=== PATIENT | male | born 1970 | race Hispanic/Latino ===

== ENCOUNTER → 2018-04-05 06:08 | Outpatient (CLI) | payer OTHER, SELFPAY ==
--- NOTE | 2018-04-05 | DI.MRI.S_ITS ---
PROCEDURE: MR LUMBAR SPINE WO CON INDICATIONS: Lumbago with sciatica, left side TECHNIQUE: Noncontrast sagittal T1 spin echo and T2 fast echo, sagittal STIR, axial T1 and T2 fast spin echo through the lumbar spine. In cases with scoliosis, additional coronal T2 fast spin echo may be performed. COMPARISON: None. FINDINGS: Image quality: Excellent. Alignment and Curvature: There is normal bony alignment. Bone Marrow: Mild reactive endplate change is noted adjacent to the L1-L2 and L2-L3 discs. No acute vertebral body compression fractures. Spinal Cord: Conus medullaris terminates at the T12-L1 disc level. Visualized cord demonstrates normal signal and size. Paraspinous Soft Tissues: No paravertebral masses. L1-L2: Loss of disc signal. Mild, diffuse disc bulge. No central stenosis. No neural foraminal narrowing. No neural impingement. L2-L3: Loss of disc signal. No central stenosis. No neural foraminal narrowing. No neural impingement. L3-L4: Loss of disc signal. No central stenosis. No neural foraminal narrowing. No neural impingement. L4-L5: Loss of disc signal. Mild bilateral facet hypertrophy. No central stenosis. No neural foraminal narrowing. No neural impingement. L5-S1: Loss of disc signal and height. Mild, diffuse disc bulge. Mild bilateral facet hypertrophy. Moderate-sized left central disc extrusion. Extruded disc material impinges upon the traversing left S1 nerve root. Mild narrowing of the central canal. No neural foraminal narrowing. IMPRESSION: 1. Multilevel degenerative disc disease. 2. Multilevel facet arthropathy. 3. Moderate-sized left central L5-S1 disc extrusion which impinges upon the traversing left S1 nerve root. Please correlate with clinical data. 4. Mild L5-S1 central canal narrowing. 5. No neural foraminal narrowing. Dictated by: Faviola Corona MD, PhD on 04/05/2018 at 9:44 Approved by: Faviola Corona MD, PhD on 04/05/2018 at 9:47
== END ==
DX: M51.16 Intervertebral disc disorders with radiculopathy, lumbar region (principal); M51.17 Intervertebral disc disorders with radiculopathy, lumbosacral region; M47.26 Other spondylosis with radiculopathy, lumbar region; M47.27 Other spondylosis with radiculopathy, lumbosacral region; M48.061 Spinal stenosis, lumbar region without neurogenic claudication; M48.07 Spinal stenosis, lumbosacral region
CPT/HCPCS: 72148

== ENCOUNTER 2019-11-04 20:58 | Emergency (ER) | payer OTHER, SELFPAY ==
[2019-11-04 21:02] VITALS: BP 129/64; PULSE 79; RESP 18; TEMP 36.8; O2SAT 98
--- NOTE | 2019-11-04 22:11 | DI.RAD.S_ITS ---
PROCEDURE: XR CHEST 1V INDICATIONS: flu-like symptoms TECHNIQUE: One view of the chest was acquired. COMPARISON: None. FINDINGS: Surgical changes and devices: None. Lungs and pleura: Lungs are clear. No pleural effusions or pneumothorax. Mediastinum: Mediastinal contours appear normal. Heart size is normal. Bones and chest wall: No suspicious bony lesions. Overlying soft tissues appear unremarkable. IMPRESSION: No acute disease Dictated by: Mike Osborne M.D. on 11/05/2019 at 8:44 Approved by: Mike Osborne M.D. on 11/05/2019 at 8:45
[2019-11-04 22:55] LABS: Alanine Aminotransferase 34 IU/L (<50); Albumin 4.1 g/dL (3.5-5.0); Albumin Globulin Ratio 1.1 (1.0-2.8); Alkaline Phosphatase 66 U/L (38-126); Aspartate Aminotransferase 39 IU/L (17-59); BUN Creatinine Ratio 12.6 (6-22); Bilirubin Total 0.4 mg/dL (0.2-1.3); Blood Urea Nitrogen 11 mg/dL (9-20); Calcium 8.4 mg/dL (8.4-10.2); Carbon Dioxide 28 mmol/L (22-32); Chloride 97 mmol/L (98-107); Creatine Kinase 92 U/L (55-170); Estimated Glomerular Filt Rate > 60.0 mL/min (>60); Globulin 3.6 g/dL (1.7-4.1); Glucose 104 mg/dL (70-100); HEMOLYSIS < 15 (0-50); Lactate (Lactic Acid) 0.8 mmol/L (0.7-2.1); Potassium 4.5 mmol/L (3.4-5.1); Sodium 134 mmol/L (137-145); Total Protein 7.7 g/dL (6.3-8.2)
[2019-11-04 22:57] LABS: Add Manual Diff / Slide Review NO; Basophils Absolute Auto 0 /uL (0-100); Basophils Percent Auto 0.4 % (0-2); Eosinophils Absolute Auto 0 /uL (0-450); Hematocrit 48.5 % (41-53); Hemoglobin 16.6 g/dL (13.5-17.5); Lymphocytes Absolute Auto 1500 /uL (1100-4500); Mean Corpuscular HGB Conc 34.3 % (30-36); Mean Corpuscular Hemoglobin 30.5 PG (26-34); Mean Corpuscular Volume 89.1 fL (80-100); Monocytes Absolute Auto 900 /uL (0-900); Monocytes Percent Auto 16.7 % (3-14); Neutrophils Absolute Auto 3100 /uL (1500-7000); Neutrophils Percent Auto 55.9 % (50-75); Platelet Count 160 X10^3/uL (150-400); Red Blood Cell Count 5.44 X10^6/uL (4.5-5.9); Red Cell Distribution Width 13.8 % (11.6-14.8); White Blood Cell Count 5.6 X10^3/uL (4.5-11.0)
[2019-11-04 23:06] LABS: Troponin I < 0.012 ng/mL (0.01-0.034)
--- NOTE | 2019-11-04 23:24 | ED.FEVER ---
HPI - Fever General Chief Complaint: Fever Stated Complaint: states high temperature,cough,tired Time Seen by Provider: 11/04/19 23:24 Source: patient Mode of arrival: Ambulatory Related Data Home Medications Medication Instructions Recorded Confirmed ibuprofen 200 mg PO TID PRN #0 07/13/16 albuterol sulfate [Ventolin HFA] 2 puff INH #0 09/06/16 fluticasone propionate [Flovent #0 09/06/16 HFA] Allergies Allergy/AdvReac Type Severity Reaction Status Date / Time No Known Allergies Allergy Uncoded 08/30/17 11:57 Patient History Social History Smoking Status: Never smoker Smoking Status: Never smoker alcohol intake frequency: holidays/special occasions only Exam Initial Vital Signs Initial Vital Signs: Vital Signs Temperature 98.3 F 11/04/19 21:02 Pulse Rate 79 11/04/19 21:02 Respiratory Rate 18 11/04/19 21:02 Blood Pressure 129/64 11/04/19 21:02 Pulse Oximetry 98 11/04/19 21:02 Course Orders Ordered: ED Orders 11/04/19 22:11 XR chest 1V Stat High flow/High humidity nasal NOW 11/04/19 22:27 Complete Blood Count AUTO DIFF Stat Comprehensive Metabolic Panel Stat Lactate (Lactic Acid) Stat Troponin & CK Cardiac Panel Stat Vital Signs Vital signs: Vital Signs - 8 hr 11/04/19 21:02 Temperature 98.3 F Pulse Rate 79 Respiratory Rate 18 Blood Pressure 129/64 Pulse Oximetry 98 MDM - Fever Lab Data Result diagrams: 11/04/19 22:27 11/04/19 22:27 Labs: Lab Results 11/04/19 11/04/19 11/04/19 Range/Units 22:20 22:27 22:27 WBC 5.6 (4.5-11.0) X10^3/uL RBC 5.44 (4.5-5.9) X10^6/uL Hgb 16.6 (13.5-17.5) g/dL Hct 48.5 (41-53) % MCV 89.1 (80-100) fL MCH 30.5 (26-34) PG MCHC 34.3 (30-36) % RDW 13.8 (11.6-14.8) % Plt Count 160 (150-400) X10^3/uL Neut % (Auto) 55.9 (50-75) % Lymph % (Auto) 27.0 (25-40) % [place] % (Auto) 16.7 H (3-14) % Eos % (Auto) 0.0 L (2-4) % Baso % (Auto) 0.4 (0-2) % Neut # (Auto) 3100 (3584-1473) /uL Lymph # (Auto) 1500 (9214-3314) /uL [place] # (Auto) 900 (0-900) /uL Eos # (Auto) 0 (0-450) /uL Baso # (Auto) 0 (0-100) /uL Sodium 134 L (137-145) mmol/L Potassium 4.5 (3.4-5.1) mmol/L Chloride 97 L (98-107) mmol/L Carbon Dioxide 28 (22-32) mmol/L BUN 11 (9-20) mg/dL Creatinine 0.87 (0.66-1.25) mg/dL Estimated GFR > 60.0 (>60) mL/min BUN/Creatinine Ratio 12.6 (6-22) Glucose 104 H (70-100) mg/dL Lactate (0.7-2.1) mmol/L Calcium 8.4 (8.4-10.2) mg/dL Total Bilirubin 0.4 (0.2-1.3) mg/dL AST 39 (17-59) IU/L ALT 34 (<50) IU/L Alkaline Phosphatase 66 (38-126) U/L Total Creatine Kinase 92 (55-170) U/L CK-MB (CK-2) TNP CK-MB (CK-2) Rel Index TNP Troponin I < 0.012 (0.01-0.034) ng/mL Total Protein 7.7 (6.3-8.2) g/dL Albumin 4.1 (3.5-5.0) g/dL Globulin 3.6 (1.7-4.1) g/dL Albumin/Globulin Ratio 1.1 (1.0-2.8) COVID-19 PCR Positive H (Negative) 11/04/19 Range/Units 22:27 WBC (4.5-11.0) X10^3/uL RBC (4.5-5.9) X10^6/uL Hgb (13.5-17.5) g/dL Hct (41-53) % MCV (80-100) fL MCH (26-34) PG MCHC (30-36) % RDW (11.6-14.8) % Plt Count (150-400) X10^3/uL Neut % (Auto) (50-75) % Lymph % (Auto) (25-40) % [place] % (Auto) (3-14) % Eos % (Auto) (2-4) % Baso % (Auto) (0-2) % Neut # (Auto) (5199-6516) /uL Lymph # (Auto) (2228-2500) /uL [place] # (Auto) (0-900) /uL Eos # (Auto) (0-450) /uL Baso # (Auto) (0-100) /uL Sodium (137-145) mmol/L Potassium (3.4-5.1) mmol/L Chloride (98-107) mmol/L Carbon Dioxide (22-32) mmol/L BUN (9-20) mg/dL Creatinine (0.66-1.25) mg/dL Estimated GFR (>60) mL/min BUN/Creatinine Ratio (6-22) Glucose (70-100) mg/dL Lactate 0.8 (0.7-2.1) mmol/L Calcium (8.4-10.2) mg/dL Total Bilirubin (0.2-1.3) mg/dL AST (17-59) IU/L ALT (<50) IU/L Alkaline Phosphatase (38-126) U/L Total Creatine Kinase (55-170) U/L CK-MB (CK-2) CK-MB (CK-2) Rel Index Troponin I (0.01-0.034) ng/mL Total Protein (6.3-8.2) g/dL Albumin (3.5-5.0) g/dL Globulin (1.7-4.1) g/dL Albumin/Globulin Ratio (1.0-2.8) COVID-19 PCR (Negative) Discharge Plan Departure Prescriptions: No Action ibuprofen 200 MG tablet 200 mg PO TID PRNQty: 0 RF: 0 fluticasone propionate [Flovent HFA] 12 GM HFA aerosol inhaler Qty: 0 RF: 0 albuterol sulfate [Ventolin HFA] 90 MCG/PUFF HFA aerosol inhaler 2 puff INH Qty: 0 RF: 0
--- NOTE | 2019-11-04 23:30 | ED.FEVER ---
HPI - Fever General Chief Complaint: Fever Stated Complaint: states high temperature,cough,tired Time Seen by Provider: 11/04/19 23:24 Source: patient Mode of arrival: Ambulatory Limitations: no limitations History of Present Illness HPI Narrative: The patient has been ill for 6 days. He is experience headache, sore throat and cough. He is not having much cough now. He does have mild GI upset, without nausea vomiting. He had fever to 101 earlier in the week, none now. He is eating and drinking well. He and his drove to [facility] Last week. I saw his in the ER last night, she is COVID-19 positive. They made the dry without stops. The visit with relatives who not ill. He May 2 trips to the store. He and his were unaware of any obvious contacts. He is nonsmoker. He denies chronic medical problems. He is having no difficulty breathing at this time. He works locally, he has unaware of any COVID-19 exposure at work. Related Data Home Medications Medication Instructions Recorded Confirmed ibuprofen 200 mg PO TID PRN #0 07/13/16 albuterol sulfate [Ventolin HFA] 2 puff INH #0 09/06/16 fluticasone propionate [Flovent #0 09/06/16 HFA] Allergies Allergy/AdvReac Type Severity Reaction Status Date / Time No Known Allergies Allergy Uncoded 08/30/17 11:57 Review of Systems Constitutional Constitutional: Reports system reviewed and no additional complaints, except as documented and Reports headache(s) Eyes Eyes: Denies blurry vision and Denies change in vision ENT Ears, Nose, Mouth, and Throat: Denies dizziness, Reports headache(s), Denies mouth pain, Denies nasal discharge and Denies neck pain Comments: He complains of sore throat that has improved. Cardiovascular Cardiovascular: Denies chest pain, Denies irregular heart rhythm, Denies lightheadedness and Denies dyspnea Respiratory Respiratory: Reports cough and Denies dyspnea Gastrointestinal Gastrointestinal: Reports abdominal pain, Denies constipation, Denies diarrhea, Denies nausea and Denies vomiting Genitourinary Comments: No complaints. Musculoskeletal Musculoskeletal: Denies back pain, Denies neck pain and Denies numbness Integumentary/Breasts Skin/Breast: Denies erythema, Denies rash and Denies wounds Neurologic Neurologic: Denies behavioral changes, Denies confusion, Denies dizziness, Reports headache(s) and Denies numbness Psychiatric Psychiatric: Denies behavioral changes and Denies confusion Patient History Social History Smoking Status: Never smoker Smoking Status: Never smoker alcohol intake frequency: holidays/special occasions only Exam Initial Vital Signs Initial Vital Signs: Vital Signs Temperature 98.3 F 11/04/19 21:02 Pulse Rate 79 11/04/19 21:02 Respiratory Rate 18 11/04/19 21:02 Blood Pressure 129/64 11/04/19 21:02 Pulse Oximetry 98 11/04/19 21:02 Const General: cooperative and well developed Nutritional Appearance: well nourished HENMT Nose: external nose normal Face and sinus: normal facial exam Mouth: oral mucosae normal Throat: posterior oropharynx normal Eyes Conjunctivae: conjunctivae normal Pupils: PERRL EOM: EOM intact bilaterally Neck Neck: supple and No tender Chest Chest: normal inspection of the chest Resp Effort & Inspection: normal respiratory effort, able to speak in complete sentences, no respiratory distress and no use of accessory muscles Auscultation: clear to auscultation bilaterally, no rales, no rhonchi and no wheezes Cardio Rate: regular rate Rhythm: regular rhythm Heart Sounds: S1 normal, S2 normal, no click, no gallops, no murmurs and no rubs Pulses: normal peripheral pulses GI Inspection: non-distended Palpation: soft, no hepatosplenomegaly, No guarding, No pulsatile mass and No tender Auscultation: normal bowel sounds Back/Spine/Pelvis Back: No CVA tenderness Cervical Spine: cervical ROM normal Thoracic/Lumbar Spine: thoracic and lumbar spine normal to inspection Skin General: no rashes or lesions noted, No jaundice and No petechiae Neuro General: patient alert, patient oriented x3, gait normal and no focal motor deficits Speech: speech normal Extrem General: full ROM, no clubbing, cyanosis or edema, no pedal edema and no calf tenderness Course Course Course Narrative: The patient's COVID-19. Currently his O2 sats are 98% on room air, his chest x-ray has minimal findings. He is breathing well. He may be recovering at this point. It sounds as if his symptoms were worse in recent days. He is discharged to home with instructions to self quarantine, return here if he develops increased issues with dyspnea. Orders Ordered: ED Orders 11/04/19 22:11 XR chest 1V Stat High flow/High humidity nasal NOW 11/04/19 22:27 Complete Blood Count AUTO DIFF Stat Comprehensive Metabolic Panel Stat Lactate (Lactic Acid) Stat Troponin & CK Cardiac Panel Stat Vital Signs Vital signs: Vital Signs - 8 hr 11/04/19 21:02 Temperature 98.3 F Pulse Rate 79 Respiratory Rate 18 Blood Pressure 129/64 Pulse Oximetry 98 MDM - Fever Lab Data Result diagrams: 11/04/19 22:27 11/04/19 22:27 Labs: Lab Results 11/04/19 11/04/19 11/04/19 Range/Units 22:20 22:27 22:27 WBC 5.6 (4.5-11.0) X10^3/uL RBC 5.44 (4.5-5.9) X10^6/uL Hgb 16.6 (13.5-17.5) g/dL Hct 48.5 (41-53) % MCV 89.1 (80-100) fL MCH 30.5 (26-34) PG MCHC 34.3 (30-36) % RDW 13.8 (11.6-14.8) % Plt Count 160 (150-400) X10^3/uL Neut % (Auto) 55.9 (50-75) % Lymph % (Auto) 27.0 (25-40) % [place] % (Auto) 16.7 H (3-14) % Eos % (Auto) 0.0 L (2-4) % Baso % (Auto) 0.4 (0-2) % Neut # (Auto) 3100 (4875-8830) /uL Lymph # (Auto) 1500 (4089-3901) /uL [place] # (Auto) 900 (0-900) /uL Eos # (Auto) 0 (0-450) /uL Baso # (Auto) 0 (0-100) /uL Sodium 134 L (137-145) mmol/L Potassium 4.5 (3.4-5.1) mmol/L Chloride 97 L (98-107) mmol/L Carbon Dioxide 28 (22-32) mmol/L BUN 11 (9-20) mg/dL Creatinine 0.87 (0.66-1.25) mg/dL Estimated GFR > 60.0 (>60) mL/min BUN/Creatinine Ratio 12.6 (6-22) Glucose 104 H (70-100) mg/dL Lactate (0.7-2.1) mmol/L Calcium 8.4 (8.4-10.2) mg/dL Total Bilirubin 0.4 (0.2-1.3) mg/dL AST 39 (17-59) IU/L ALT 34 (<50) IU/L Alkaline Phosphatase 66 (38-126) U/L Total Creatine Kinase 92 (55-170) U/L CK-MB (CK-2) TNP CK-MB (CK-2) Rel Index TNP Troponin I < 0.012 (0.01-0.034) ng/mL Total Protein 7.7 (6.3-8.2) g/dL Albumin 4.1 (3.5-5.0) g/dL Globulin 3.6 (1.7-4.1) g/dL Albumin/Globulin Ratio 1.1 (1.0-2.8) COVID-19 PCR Positive H (Negative) 11/04/19 Range/Units 22:27 WBC (4.5-11.0) X10^3/uL RBC (4.5-5.9) X10^6/uL Hgb (13.5-17.5) g/dL Hct (41-53) % MCV (80-100) fL MCH (26-34) PG MCHC (30-36) % RDW (11.6-14.8) % Plt Count (150-400) X10^3/uL Neut % (Auto) (50-75) % Lymph % (Auto) (25-40) % [place] % (Auto) (3-14) % Eos % (Auto) (2-4) % Baso % (Auto) (0-2) % Neut # (Auto) (0308-9498) /uL Lymph # (Auto) (7956-8618) /uL [place] # (Auto) (0-900) /uL Eos # (Auto) (0-450) /uL Baso # (Auto) (0-100) /uL Sodium (137-145) mmol/L Potassium (3.4-5.1) mmol/L Chloride (98-107) mmol/L Carbon Dioxide (22-32) mmol/L BUN (9-20) mg/dL Creatinine (0.66-1.25) mg/dL Estimated GFR (>60) mL/min BUN/Creatinine Ratio (6-22) Glucose (70-100) mg/dL Lactate 0.8 (0.7-2.1) mmol/L Calcium (8.4-10.2) mg/dL Total Bilirubin (0.2-1.3) mg/dL AST (17-59) IU/L ALT (<50) IU/L Alkaline Phosphatase (38-126) U/L Total Creatine Kinase (55-170) U/L CK-MB (CK-2) CK-MB (CK-2) Rel Index Troponin I (0.01-0.034) ng/mL Total Protein (6.3-8.2) g/dL Albumin (3.5-5.0) g/dL Globulin (1.7-4.1) g/dL Albumin/Globulin Ratio (1.0-2.8) COVID-19 PCR (Negative) Imaging Data Chest x-ray: My Impression: Bilateral ground glass abnormalities. Discharge Plan Departure Patient Disposition: Home Clinical Impression: COVID-19 Instructions: Coronavirus Disease 2019 Activity Restrictions/Additional Instructions: Tylenol 2 tablets every 4 hours as needed for pain or fever. Rest, be sure you are drinking plenty of fluids. No work for 1 week, contact your employer before return to work. Return the ER if you develop any significant increase in difficulty breathing. Prescriptions: No Action ibuprofen 200 MG tablet 200 mg PO TID PRNQty: 0 RF: 0 fluticasone propionate [Flovent HFA] 12 GM HFA aerosol inhaler Qty: 0 RF: 0 albuterol sulfate [Ventolin HFA] 90 MCG/PUFF HFA aerosol inhaler 2 puff INH Qty: 0 RF: 0 Stand Alone Forms: Work Release Note
[2019-11-04 23:32] LABS: COVID19 -Nasal RAPID POSITIVE (Negative)
[2019-11-05] VITALS: BP 126/75; PULSE 83; RESP 20; O2SAT 96
== END 2019-11-05 | disposition home or self-care (01) ==
PROVIDERS: Emergency Provider Emergency Medicine
DX: U07.1 COVID-19 (principal)
CPT/HCPCS: 36415; 71045; 80053; 82550; 83605; 84484; 85025; 87635; 99281; 99284

== ENCOUNTER 2019-11-09 16:38 | Emergency (ER) | payer OTHER, MEDICAID, SELFPAY ==
[2019-11-09 17:01] VITALS: BP 111/74; PULSE 65; RESP 24; TEMP 37.1; O2SAT 96; BMI 31.8
--- NOTE | 2019-11-09 17:20 | DI.RAD.S_ITS ---
PROCEDURE: XR CHEST 1V INDICATIONS: SOB, COVID+ TECHNIQUE: One view of the chest was acquired. COMPARISON: [facility], CR, XR CHEST 1V, 11/04/2019, 22:16. FINDINGS: Surgical changes and devices: Enlarged Lungs and pleura: Increased vascular markings in bilateral hilar region are seen. Subtle opacity in right infrahilar region is noted. No pleural effusions or pneumothorax. Mediastinum: Mediastinal contours appear normal. Heart size is normal. Bones and chest wall: No suspicious bony lesions. Overlying soft tissues appear unremarkable. IMPRESSION: Suggestion of reactive airway disease, cannot rule out underlying right infrahilar infiltrate. No pleural effusion or pneumothorax. Dictated by: Sarthak James M.D. on 11/09/2019 at 18:19 Approved by: Sarthak James M.D. on 11/09/2019 at 18:20
[2019-11-09] MEDS: DEXAMETHASONE 10 MG/ML VIAL PO (17:41)
--- NOTE | 2019-11-09 17:52 | ED.SOB ---
HPI - SOB/Dyspnea <AUTUMN Burgos - Last Filed: 11/09/19 20:45> General Chief Complaint: Shortness of Breath/Dyspnea Stated Complaint: COVID Positive, SOB, really tired, back hurts Time Seen by Provider: 11/09/19 16:56 Source: patient Mode of arrival: Ambulatory Limitations: no limitations History of Present Illness HPI Narrative: 49-year-old male who recently tested positive for COVID-19 on 11/04/19, presents emergency department for worsening shortness of breath. Patient states shortness of breath is worse at night any has increased cough, patient has been unable to sleep while for the past 3 days due to symptoms. Patient denies any nausea, vomiting, abdominal pain, dizziness, wheezing, headaches, chest pain, or any other concerns. Patient denies any significant allergies or major medical issues. Patient states he has taken albuterol in the past for reactive airway disease. Related Data Home Medications Medication Instructions Recorded Confirmed ibuprofen 200 mg PO TID PRN #0 07/13/16 albuterol sulfate [Ventolin HFA] 2 puff INH #0 09/06/16 fluticasone propionate [Flovent #0 09/06/16 HFA] Previous Rx's Medication Instructions Recorded dexamethasone 10 mg PO DAILY 4 Days #10 tab 11/09/19 Allergies Allergy/AdvReac Type Severity Reaction Status Date / Time No Known Drug Allergies Allergy Verified 11/09/19 19:19 Review of Systems <AUTUMN Burgos - Last Filed: 11/09/19 20:45> Review of Systems Narrative: REVIEW OF SYSTEMS: GENERAL: Denies fevers. HENT: No head trauma or hearing loss. EYES: No vision changes. CARDIOVASCULAR: No chest pain. RESPIRATORY: Reports shortness of breath and dry cough, see HPI. GASTROINTESTINAL: No nausea, vomiting, diarrhea, or constipation. MUSCULOSKELETAL: No weakness or injury. INTEGUMENTARY: No rash. NEURO: No memory loss, or confusion. Patient History <AUTUMN Burgos - Last Filed: 11/09/19 20:45> Medical History No pertinent past medical history (Acute) Social History Smoking Status: Never smoker Smoking Status: Never smoker alcohol intake frequency: holidays/special occasions only Substance Use Type: does not use Exam <AUTUMN Burgos - Last Filed: 11/09/19 20:45> Initial Vital Signs Initial Vital Signs: Vital Signs Temperature 98.7 F 11/09/19 17:01 Pulse Rate 65 11/09/19 17:01 Respiratory Rate 24 11/09/19 17:01 Blood Pressure 111/74 11/09/19 17:01 Pulse Oximetry 96 11/09/19 17:01 PHYSICAL EXAMINATION: GENERAL: Well groomed, alert, and cooperative. Answers questions promptly and appropriately. Vital signs noted. HENT: Normocephalic, atraumatic. Ear canals patent. Oropharynx without erythema. EYES: Conjunctiva pink, sclera white, no periorbital swelling. No discharge. CHEST: Normal to inspection and without deformities. CARDIOVASCULAR: S1 and S2 sounds normal. Regular rate and rhythm, no murmurs, clicks, or bruits. RESPIRATORY: Normal respiratory rate, trachea midline, airway patent. No stridor, nasal flaring or accessory muscle use. Able to speak in full sentences. Lungs are clear in all mai without wheeze, rhonchi, or crackles. Occasional dry cough noted on examination. Able to ambulate without respiratory distress. MUSCULOSKELETAL: Normal gait and coordination. Equal tone and mass bilaterally. EXTREMITIES: Moves all extremities. SKIN: Warm, dry, soft, appropriate color for ethnicity. No lesions, rashes, or wounds to visualized areas. NEURO: Alert and Oriented X 3. Good coordination. No ataxia or cognitive issues. PSYCH: Appropriate affect and mood. <Kyle Fishman MD - Last Filed: 11/10/19 07:29> Initial Vital Signs Initial Vital Signs: Vital Signs Temperature 98.7 F 11/09/19 17:01 Pulse Rate 65 11/09/19 17:01 Respiratory Rate 24 11/09/19 17:01 Blood Pressure 111/74 11/09/19 17:01 Pulse Oximetry 96 11/09/19 17:01 Course <AUTUMN Burgos - Last Filed: 11/09/19 20:45> Course Course Narrative: Patient updated on plan of care, was asleep, awakes to voice. States he is feeling better, agrees with being able to go home. Reports he has had albuterol inhaler in the past for reactive airway disease. Orders Ordered: Discontinued Medications Albuterol (Ventolin Hfa Prepack) 1 box MISC SEEINSTR ONE Stop: 11/09/19 19:08 Last Admin: 11/09/19 19:39 Dose: 1 box Documented by: TAMIE Dexamethasone (Decadron) 10 mg PO NOW ONE Stop: 11/09/19 17:21 Last Admin: 11/09/19 17:41 Dose: 10 mg Documented by: TAMIE Consultations Consultation #1: Patient staffed Dr. Fishman, discussed test, test results, and plan of care. Vital Signs Vital signs: Vital Signs - 8 hr 11/09/19 17:01 11/09/19 19:05 11/09/19 19:39 Temperature 98.7 F 98.3 F Pulse Rate 65 61 72 Respiratory Rate 24 16 20 Blood Pressure 111/74 Blood Pressure [Left Arm] 108/75 116/76 Pulse Oximetry 96 100 96 11/09/19 19:51 Temperature 98.3 F Pulse Rate Respiratory Rate Blood Pressure Blood Pressure [Left Arm] Pulse Oximetry <Kyle Fishman MD - Last Filed: 11/10/19 07:29> Orders Ordered: Discontinued Medications Albuterol (Ventolin Hfa Prepack) 1 box MISC SEEINSTR ONE Stop: 11/09/19 19:08 Last Admin: 11/09/19 19:39 Dose: 1 box Documented by: TAMIE Dexamethasone (Decadron) 10 mg PO NOW ONE Stop: 11/09/19 17:21 Last Admin: 11/09/19 17:41 Dose: 10 mg Documented by: TAMIE Vital Signs Vital signs: Vital Signs - 8 hr 11/09/19 17:01 11/09/19 19:05 11/09/19 19:39 Temperature 98.7 F 98.3 F Pulse Rate 65 61 72 Respiratory Rate 24 16 20 Blood Pressure 111/74 Blood Pressure [Left Arm] 108/75 116/76 Pulse Oximetry 96 100 96 11/09/19 19:51 Temperature 98.3 F Pulse Rate Respiratory Rate Blood Pressure Blood Pressure [Left Arm] Pulse Oximetry MDM - SOB/Dyspnea <AUTUMN Burgos - Last Filed: 11/09/19 20:45> Medical Records Attestation: I reviewed the patient's medical records. Lab Data Attestation: I reviewed the patient's lab results. Result diagrams: 11/09/19 18:10 11/09/19 18:10 Labs: Lab Results 11/09/19 11/09/19 11/09/19 Range/Units 18:10 18:10 18:10 WBC 5.6 (4.5-11.0) X10^3/uL RBC 5.38 (4.5-5.9) X10^6/uL Hgb 16.6 (13.5-17.5) g/dL Hct 47.3 (41-53) % MCV 88.0 (80-100) fL MCH 30.8 (26-34) PG MCHC 35.0 (30-36) % RDW 13.5 (11.6-14.8) % Plt Count 149 L (150-400) X10^3/uL Neut % (Auto) 66.6 (50-75) % Lymph % (Auto) 23.1 L (25-40) % Tompkins % (Auto) 10.0 (3-14) % Eos % (Auto) 0.0 L (2-4) % Baso % (Auto) 0.3 (0-2) % Neut # (Auto) 3700 (9405-9395) /uL Lymph # (Auto) 1300 (0298-7290) /uL Tompkins # (Auto) 600 (0-900) /uL Eos # (Auto) 0 (0-450) /uL Baso # (Auto) 0 (0-100) /uL Sodium 139 (137-145) mmol/L Potassium 4.3 (3.4-5.1) mmol/L Chloride 97 L (98-107) mmol/L Carbon Dioxide 30 (22-32) mmol/L BUN 9 (9-20) mg/dL Creatinine 0.90 (0.66-1.25) mg/dL Estimated GFR > 60.0 (>60) mL/min BUN/Creatinine Ratio 10.0 (6-22) Glucose 107 H (70-100) mg/dL Calcium 8.6 (8.4-10.2) mg/dL Total Bilirubin 0.5 (0.2-1.3) mg/dL AST 48 (17-59) IU/L ALT 28 (<50) IU/L Alkaline Phosphatase 79 (38-126) U/L Total Creatine Kinase 71 (55-170) U/L CK-MB (CK-2) TNP CK-MB (CK-2) Rel Index TNP Troponin I < 0.012 (0.01-0.034) ng/mL Total Protein 7.6 (6.3-8.2) g/dL Albumin 3.9 (3.5-5.0) g/dL Globulin 3.7 (1.7-4.1) g/dL Albumin/Globulin Ratio 1.1 (1.0-2.8) Imaging Data Chest x-ray: Radiologist's Impression: [address] [address] XRay Report Signed Patient: Corinne Bauer#: [id number] : 1970Acct:[id number] Age/Sex: 49 / MDate of Service: 11/09/19 Loc: ED Accession Number: [id number] Procedure: XR chest 1V Ordering Provider: Khushi Taylor PROCEDURE: XR CHEST 1V INDICATIONS: SOB, COVID+ TECHNIQUE: One view of the chest was acquired. COMPARISON: Merged With [facility], CR, XR CHEST 1V, 11/04/2019, 22:16. FINDINGS: Surgical changes and devices: Enlarged Lungs and pleura: Increased vascular markings in bilateral hilar region are seen. Subtle opacity in right infrahilar region is noted. No pleural effusions or pneumothorax. Mediastinum: Mediastinal contours appear normal. Heart size is normal. Bones and chest wall: No suspicious bony lesions. Overlying soft tissues appear unremarkable. IMPRESSION: Suggestion of reactive airway disease, cannot rule out underlying right infrahilar infiltrate. No pleural effusion or pneumothorax. Dictated by: Sarthak James M.D. on 11/09/2019 at 18:19 Approved by: Sarthak James M.D. on 11/09/2019 at 18:20 ECG Data Interpretation: 1725: Sinus rhythm, rate 62, AL interval 173, QTC 390. No ST elevation or ST depression. T-wave inversion noted in lead 3. No prior EKG for comparison. EKG also viewed by Dr. Fishman per protocol. MDM Narrative Medical decision making narrative: 49yo male who tested positive for COVID-19 5 days prior, presents emergency department for increased shortness of breath. Chest x-ray shows mild infiltrates and reactive airway disease, suspect this is related to COVID-19 and the cause of shortness of breath. Less likely ACS due to lack of you changes on EKG, negative troponin, and no cardiomegaly seen and examination. Less concern for respiratory compromise as patient maintain oxygen saturations above 98 the entire time, was able to ambulate without decreased oxygen saturation or respiratory distress. Patient was given dexamethasone due to recent study showing improvement in COVID-19 outcomes, he was sent with a script. Patient was given an albuterol inhaler, he reports he has taken this in the past for reactive airway disease, due to x-ray finding he was encouraged to use this every 4-6 hours. Patient was given very strict return precautions for new or worsening symptoms. He was encouraged to use [id number] cold medicine to help with symptoms as well. Patient agreed to plan of care verbalized understanding. He was encouraged to maintain isolation until 3 days after symptoms have resolved. <Kyle Fishman MD - Last Filed: 11/10/19 07:29> Lab Data Labs: Lab Results 11/09/19 11/09/19 11/09/19 Range/Units 18:10 18:10 18:10 WBC 5.6 (4.5-11.0) X10^3/uL RBC 5.38 (4.5-5.9) X10^6/uL Hgb 16.6 (13.5-17.5) g/dL Hct 47.3 (41-53) % MCV 88.0 (80-100) fL MCH 30.8 (26-34) PG MCHC 35.0 (30-36) % RDW 13.5 (11.6-14.8) % Plt Count 149 L (150-400) X10^3/uL Neut % (Auto) 66.6 (50-75) % Lymph % (Auto) 23.1 L (25-40) % Tompkins % (Auto) 10.0 (3-14) % Eos % (Auto) 0.0 L (2-4) % Baso % (Auto) 0.3 (0-2) % Neut # (Auto) 3700 (6711-2189) /uL Lymph # (Auto) 1300 (3393-6486) /uL Tompkins # (Auto) 600 (0-900) /uL Eos # (Auto) 0 (0-450) /uL Baso # (Auto) 0 (0-100) /uL Sodium 139 (137-145) mmol/L Potassium 4.3 (3.4-5.1) mmol/L Chloride 97 L (98-107) mmol/L Carbon Dioxide 30 (22-32) mmol/L BUN 9 (9-20) mg/dL Creatinine 0.90 (0.66-1.25) mg/dL Estimated GFR > 60.0 (>60) mL/min BUN/Creatinine Ratio 10.0 (6-22) Glucose 107 H (70-100) mg/dL Calcium 8.6 (8.4-10.2) mg/dL Total Bilirubin 0.5 (0.2-1.3) mg/dL AST 48 (17-59) IU/L ALT 28 (<50) IU/L Alkaline Phosphatase 79 (38-126) U/L Total Creatine Kinase 71 (55-170) U/L CK-MB (CK-2) TNP CK-MB (CK-2) Rel Index TNP Troponin I < 0.012 (0.01-0.034) ng/mL Total Protein 7.6 (6.3-8.2) g/dL Albumin 3.9 (3.5-5.0) g/dL Globulin 3.7 (1.7-4.1) g/dL Albumin/Globulin Ratio 1.1 (1.0-2.8) Discharge Plan Departure Patient Disposition: Home Clinical Impression: COVID-19 Exacerbation of reactive airway disease Qualifiers: Asthma severity: mild Asthma persistence: intermittent Qualified Code(s): J45.21 - Mild intermittent asthma with (acute) exacerbation Discharge Date/Time: 11/09/19 19:51 Instructions: Reactive Airway Disease-Adult, DI for COVID-19 (Suspected or Confirmed ), Coronavirus Disease 2019, Can COVID-19 be prevented? Activity Restrictions/Additional Instructions: Thank you for entrusting me with your care today. As discussed, your chest x-ray shows some non severe changes that are consistent with COVID-19 and reactive airway disease, your oxygen saturation is good and you do not need admission at this time. I prescribed you an inhaler, use this every 4-6 hours as needed for shortness of breath. Have also prescribed you dexamethasone, this medication can cause anxiety, high blood sugar, jitters, and insomnia but can help with COVID-19 shortness of breath. This medication has been sent to [facility] in [place]. Make an appointment to follow up with your primary care provider in the next 1-2 weeks for further evaluation. *You have been diagnosed with COVID-19 *What to do: * per recommendations from the CDC and the [facility] Department of Health * stay home except to get medical care. Restrict activities outside your home, except for getting medical care. Do not go to work, school, or public areas. Avoid using public transportation, ride sharing, or taxis. * separate yourself from other people in your home. * call ahead before visiting your doctor * Wear a face mask * Cover your coughs and sneezes * Clean your hands often * Avoid sharing household items * Clean all high-touch services every day * Monitor your symptoms and seek prompt medical attention if your illness is worsening, particularly with difficulty in breathing. Discussed continuing home isolation * for individuals with symptoms who are confirmed or suspected cases of COVID-19 and are directed to care for themselves at home, discontinue home isolation under the following conditions: 1. At least 72 hours have passed since recovery, defined as resolution of fever without the use of fever reducing medications, and improvement in respiratory symptoms (cough, shortness of breath) AND, 2. At least 7 days have passed since symptoms 1st appeared Individuals with laboratory confirmed COVID-19 who have not had any symptoms may discontinue home isolation when at least 7 days have passed since the date of their 1st COVID-19 diagnostic test and have had no subsequent illness COVID-19 can cause shortness of breath and continued cough. You can take [id number] cold medicine to help with symptoms. Return emergency department for new or worsening symptoms such as severe shortness of breath that you cannot walk across a room without stopping to catch your breath, high fevers, passing out, uncontrollable vomiting, chest pain, or any other concerns Prescriptions: New dexamethasone 4 mg tablet 10 mg PO DAILY 4 Days Qty: 10 RF: 0 No Action ibuprofen 200 MG tablet 200 mg PO TID PRNQty: 0 RF: 0 fluticasone propionate [Flovent HFA] 12 GM HFA aerosol inhaler Qty: 0 RF: 0 albuterol sulfate [Ventolin HFA] 90 MCG/PUFF HFA aerosol inhaler 2 puff INH Qty: 0 RF: 0
[2019-11-09 18:17] LABS: Add Manual Diff / Slide Review NO; Basophils Absolute Auto 0 /uL (0-100); Basophils Percent Auto 0.3 % (0-2); Eosinophils Absolute Auto 0 /uL (0-450); Hematocrit 47.3 % (41-53); Hemoglobin 16.6 g/dL (13.5-17.5); Lymphocytes Absolute Auto 1300 /uL (1100-4500); Lymphocytes Percent Auto 23.1 % (25-40); Mean Corpuscular Hemoglobin 30.8 PG (26-34); Monocytes Absolute Auto 600 /uL (0-900); Neutrophils Absolute Auto 3700 /uL (1500-7000); Neutrophils Percent Auto 66.6 % (50-75); Platelet Count 149 X10^3/uL (150-400); Red Blood Cell Count 5.38 X10^6/uL (4.5-5.9); Red Cell Distribution Width 13.5 % (11.6-14.8); White Blood Cell Count 5.6 X10^3/uL (4.5-11.0)
[2019-11-09 18:29] LABS: Creatine Kinase 71 U/L (55-170)
[2019-11-09 18:31] LABS: Alanine Aminotransferase 28 IU/L (<50); Albumin 3.9 g/dL (3.5-5.0); Albumin Globulin Ratio 1.1 (1.0-2.8); Alkaline Phosphatase 79 U/L (38-126); Aspartate Aminotransferase 48 IU/L (17-59); Bilirubin Total 0.5 mg/dL (0.2-1.3); Blood Urea Nitrogen 9 mg/dL (9-20); Calcium 8.6 mg/dL (8.4-10.2); Carbon Dioxide 30 mmol/L (22-32); Chloride 97 mmol/L (98-107); Estimated Glomerular Filt Rate > 60.0 mL/min (>60); Globulin 3.7 g/dL (1.7-4.1); Glucose 107 mg/dL (70-100); HEMOLYSIS < 15 (0-50); Potassium 4.3 mmol/L (3.4-5.1); Sodium 139 mmol/L (137-145); Total Protein 7.6 g/dL (6.3-8.2)
[2019-11-09 18:42] LABS: Troponin I < 0.012 ng/mL (0.01-0.034)
[2019-11-09 19:05] VITALS: BP 108/75; PULSE 61; RESP 16; O2SAT 100
[2019-11-09 19:39] VITALS: BP 116/76; PULSE 72; RESP 20; TEMP 36.8; O2SAT 96
[2019-11-09] MEDS: ALBUTEROL HFA PREPACK 1 BOX MISC (19:39)
[2019-11-09 19:51] VITALS: TEMP 36.8
== END 2019-11-09 19:51 | disposition home or self-care (01) ==
PROVIDERS: Emergency Provider Nurse Practitioner
DX: U07.1 COVID-19 (principal); J45.21 Mild intermittent asthma with (acute) exacerbation
CPT/HCPCS: 36415; 71045; 80053; 82550; 84484; 85025; 93005; 99284; J1100

== ENCOUNTER → 2019-11-21 13:15 | Outpatient (CLI) | payer OTHER, SELFPAY ==
[2019-11-24 10:36] LABS: COVID19 Sendout Detected (Not Detected)
== END ==
PROVIDERS: Visit Provider Physician Assistant
DX: U07.1 COVID-19 (principal)
CPT/HCPCS: 87635

== ENCOUNTER 2022-06-10 20:45 | Emergency (ER) | payer OTHER, MEDICAID, SELFPAY ==
[2022-06-10 20:50] VITALS: BP 144/92; PULSE 57; RESP 15; TEMP 36.5; O2SAT 98; BMI 34.9
[2022-06-10 21:34] VITALS: BP 131/78; BP 134/82; BP 138/83
[2022-06-10 21:59] LABS: Add Manual Diff / Slide Review NO; Basophils Absolute Auto 0 /uL (0-100); Basophils Percent Auto 0.7 % (0-2); Eosinophils Absolute Auto 400 /uL (0-450); Eosinophils Percent Auto 5.7 % (2-4); Hematocrit 46.2 % (41-53); Hemoglobin 15.4 g/dL (13.5-17.5); Lymphocytes Absolute Auto 2300 /uL (1100-4500); Lymphocytes Percent Auto 36.3 % (25-40); Mean Corpuscular HGB Conc 33.4 % (30-36); Mean Corpuscular Hemoglobin 29.6 PG (26-34); Mean Corpuscular Volume 88.6 fL (80-100); Monocytes Absolute Auto 600 /uL (0-900); Monocytes Percent Auto 9.5 % (3-14); Neutrophils Absolute Auto 3100 /uL (1500-7000); Neutrophils Percent Auto 47.8 % (50-75); Platelet Count 205 X10^3/uL (150-400); Red Blood Cell Count 5.21 X10^6/uL (4.5-5.9); Red Cell Distribution Width 13.8 % (11.6-14.8); White Blood Cell Count 6.5 X10^3/uL (4.5-11.0)
[2022-06-10 22:07] LABS: BUN Creatinine Ratio 18.6 (6-22); Blood Urea Nitrogen 13 mg/dL (9-20); Calcium 8.9 mg/dL (8.4-10.2); Carbon Dioxide 23 mmol/L (22-32); Chloride 105 mmol/L (98-107); Estimated Glomerular Filt Rate > 60 mL/min (>60); Glucose 97 mg/dL (70-100); HEMOLYSIS 25 (0-50); Potassium 3.7 mmol/L (3.4-5.1); Sodium 137 mmol/L (137-145)
--- NOTE | 2022-06-10 22:40 | ED_ITS ---
HPI - GI Bleed General Chief complaint: GI Bleed Stated complaint: GI bleed Time Seen by Provider: 06/10/22 21:03 Source: patient Mode of arrival: Ambulatory Limitations: no limitations History of Present Illness HPI Narrative: Patient is a 52-year-old male who over the past week has had occasional episodes of dark/black colored stools. He has had issues with GI bleeds in the past. Several years ago he had a colonoscopy/endoscopy for evaluation of a prior bleed. Was told that he had a ulceration. He is not currently on any medications for this. He denies alcohol use. Occasionally uses nonsteroidal anti-inflammatories. Is not on any anticoagulation. No recent travel. No recent antibiotics. No abdominal discomfort. No pain with bowel movements. No nausea vomiting. No urinary symptoms. Related Data Home Medications Medication Instructions Recorded Confirmed ibuprofen 200 mg tablet 200 mg PO TID PRN ##0 07/13/16 albuterol sulfate 90 mcg/actuation 2 puff INH ##0 09/06/16 aerosol inhaler (Ventolin HFA) fluticasone propionate 110 ##0 09/06/16 mcg/actuation HFA aerosol inhaler (Flovent HFA) Allergies Allergy/AdvReac Type Severity Reaction Status Date / Time No Known Drug Allergies Allergy Verified 11/21/19 13:23 Review of Systems Constitutional Constitutional: Reports system reviewed and no additional complaints, except as documented Cardiovascular Cardiovascular: Reports system reviewed and no additional complaints, except as documented Gastrointestinal Gastrointestinal: Reports system reviewed and no additional complaints, except as documented Genitourinary Genitourinary: Reports system reviewed and no additional complaints, except as documented Musculoskeletal Musculoskeletal: Reports system reviewed and no additional complaints, except as documented Integumentary/Breasts Skin/Breast: Reports system reviewed and no additional complaints, except as documented Hematologic/Lymphatic On Anticoagulants: No Patient History Medical History No pertinent past medical history Social History Smoking Status: Never smoker Smoking Status: Never smoker alcohol intake frequency: a few times a month Substance Use Type: does not use Exam Initial Vital Signs Initial Vital Signs: Vital Signs Temperature 97.7 F 06/10/22 20:50 Pulse Rate 57 L 06/10/22 20:50 Respiratory Rate 15 06/10/22 20:50 Blood Pressure 144/92 H 06/10/22 20:50 Pulse Oximetry 98 06/10/22 20:50 Oxygen Delivery Method 06/10/22 20:50 Const General: cooperative, comfortable and No ill appearing HENMT Head: normal to inspection and normocephalic Resp Effort & Inspection: normal respiratory effort Auscultation: clear to auscultation bilaterally Cardio Rate: regular rate Rhythm: regular rhythm GI Inspection: normal to inspection Palpation: soft, No firm and No tender Neuro General: patient alert, patient awake, patient oriented x3 and moves all extremities Speech: speech normal Extrem General: normal to inspection and capillary refill normal Course Orders Ordered: ED Orders 06/10/22 21:41 Basic Metabolic Panel Stat Complete Blood Count AUTO DIFF Stat Vital Signs Vital signs: Vital Signs - 8 hr 06/10/22 20:50 06/10/22 21:34 06/10/22 23:17 Temperature 97.7 F Pulse Rate 57 L 58 L Respiratory Rate 15 16 Blood Pressure 144/92 H 131/78 Blood Pressure [Orthostatic Lying] 131/78 Blood Pressure [Orthostatic Sitting] 138/83 Blood Pressure [Orthostatic Standing] 134/82 Pulse Oximetry 98 100 Oxygen Delivery Method Room Air Room Air MDM - GI Bleed Differential Diagnosis Differential diagnosis: Likely hemorrhoids, infectious diarrhea, Upper gastrointestinal hemorrhage, Lower gastrointestinal hemorrhage, hematochezia, melena, anal fissure and other Condition is:: Well Controlled Condition is at treatment goal?: Yes Lab Data Attestation: I reviewed the patient's lab results. Result diagrams: 06/10/22 21:41 06/10/22 21:41 Labs: Lab Results 06/10/22 06/10/22 Range/Units 21:41 21:41 WBC 6.5 (4.5-11.0) X10^3/uL RBC 5.21 (4.5-5.9) X10^6/uL Hgb 15.4 (13.5-17.5) g/dL Hct 46.2 (41-53) % MCV 88.6 (80-100) fL MCH 29.6 (26-34) PG MCHC 33.4 (30-36) % RDW 13.8 (11.6-14.8) % Plt Count 205 (150-400) X10^3/uL Neut % (Auto) 47.8 L (50-75) % Lymph % (Auto) 36.3 (25-40) % Atkinson % (Auto) 9.5 (3-14) % Eos % (Auto) 5.7 H (2-4) % Baso % (Auto) 0.7 (0-2) % Neut # (Auto) 3100 (1735-1285) /uL Lymph # (Auto) 2300 (3318-5462) /uL Atkinson # (Auto) 600 (0-900) /uL Eos # (Auto) 400 (0-450) /uL Baso # (Auto) 0 (0-100) /uL Sodium 137 (137-145) mmol/L Potassium 3.7 (3.4-5.1) mmol/L Chloride 105 (98-107) mmol/L Carbon Dioxide 23 (22-32) mmol/L BUN 13 (9-20) mg/dL Creatinine 0.70 (0.66-1.25) mg/dL Estimated GFR > 60 (>60) mL/min BUN/Creatinine Ratio 18.6 (6-22) Glucose 97 (70-100) mg/dL Calcium 8.9 (8.4-10.2) mg/dL MDM Narrative Medical decision making narrative: Vital signs and lab work today and physical exam are very reassuring. No indication for radiologic studies today. No Indication for surgical consultation today. He was informed that he does need follow-up with general surgery. We also discussed starting him on a proton pump inhibitor. He was given strict return precautions. He expressed understanding and agreement. Discharge Plan Departure Patient Disposition: Home Clinical Impression: Melena Instructions: Gastrointestinal Bleeding Activity Restrictions/Additional Instructions: I recommend that you call the general surgery department here at the hospital to schedule a follow-up appointment to discuss the indications for a colonoscopy/upper endoscopy. Their contact information is provided below. U ntil then I do recommend that you start on a class of medicines called a proton pump inhibitor (ppi). Examples of these would be Nexium or Prilosec. You can purchase these medications [id number]. The generic versions of these medicines as appropriate. The regimen would be taking the medicine 1 time a day for the next 14 days. Return to the emergency department for any new or worsening symptoms. Prescriptions: No Action ibuprofen 200 MG tablet 200 mg PO TID PRNQty: 0 fluticasone propionate [Flovent HFA] 12 GM HFA aerosol inhaler Qty: 0 albuterol sulfate [Ventolin HFA] 90 MCG/PUFF HFA aerosol inhaler 2 puff INH Qty: 0 Stand Alone Forms: Patient Portal/API
[2022-06-10 23:17] VITALS: BP 131/78; PULSE 58; RESP 16; O2SAT 100
== END 2022-06-10 23:18 | disposition home or self-care (01) ==
PROVIDERS: Emergency Provider Emergency Medicine
DX: K92.1 Melena (principal)
CPT/HCPCS: 80048; 85025; 99281; 99282